=== PATIENT | male | born 1960 | race Caucasian/White ===

== ENCOUNTER 2021-01-15 13:19 | Inpatient (IN) ==
[2021-01-15] MEDS ORDERED: Naloxone 0.4 MG/ML INJ IVP PRN (16:15)
[2021-01-15] MEDS ORDERED: Mag Hydrox/Al Hydrox/Simeth 30 ML UDC PO PRN (16:15)
[2021-01-15] MEDS ORDERED: Acetaminophen 325 MG TABLET PO PRN (16:15)
[2021-01-15] MEDS ORDERED: MOM Conc 10 ML UD.LIQ PO PRN (16:15)
[2021-01-15] MEDS ORDERED: Ondansetron 4 MG/2 ML VIAL IVP PRN (16:15)
[2021-01-15] MEDS ORDERED: *HR* LORazepam 2 MG/ML VIAL IVP PRN ×2 (16:18)
[2021-01-15] MEDS ORDERED: *HR* Metoprolol 5 MG/5 ML VIAL IVP ONE (16:35)
[2021-01-15] MEDS: Nicotine 14 MG PATCH.TD24 TD SCH (17:16)
[2021-01-15 17:30] LABS: Albumin 4.5 g/dL (3.5-5.7); Alkaline Phosphatase 54 Units/L (34-104); BUN/Creatinine Ratio 11 (6-26); Blood Urea Nitrogen 6 mg/dL (8-23); Calcium 8.7 mg/dL (8.6-10.3); Carbon Dioxide 19 mEq/L (23-29); Chloride 93 mEq/L (98-107); Glucose 69 mg/dL (70-105); Osmolality,Calculated 266 (280-300); Potassium 4.1 mEq/L (3.5-5.1); Sodium 130 mEq/L (136-145); Troponin I < 0.03 ng/mL (< 0.04); eGFR For African Americans > 60 (> 60); eGFR For Non-African Americans > 60 (> 60)
[2021-01-15 17:48] LABS: Alanine Aminotransferase 57 Units/L (7-52); Albumin/Globulin Ratio 1.6 (1.1-2.2); Aspartate Amino Transferase 66 Units/L (13-39); Globulin 2.9 g/dL (2.4-3.5); Total Protein 7.4 g/dL (6.4-8.9)
[2021-01-15 17:49] LABS: Bilirubin,Total 0.9 mg/dL (0.3-1.0)
[2021-01-15] MEDS ORDERED: D5% in Water 1,000 ML IVC PRN (18:10)
[2021-01-15] MEDS ORDERED: Dextrose Gel 15 GM/37.5 ML TUBE PO PRN ×2 (18:10)
[2021-01-15] MEDS ORDERED: *HR* Dextrose 50 % in Water (Vial) 50 ML VIAL IVP PRN (18:10)
[2021-01-15] MEDS: Thiamine (B-1) 100 MG, Folic Acid 1 MG, MVI, adult with vitamin K 10 ML in 0.9 % Sodi... IVPB SCH (18:16)
[2021-01-15] MEDS ORDERED: lisinopriL 20 MG TABLET PO ONE (18:28)
[2021-01-15] MEDS: *HR* LORazepam 2 MG/ML VIAL IVP PRN (21:00)
[2021-01-16 01:07] LABS: Basophils % 0.9 %; Eosinophils # 0.1 K/mcL (0.0-0.6); Eosinophils % 1.8 %; Hematocrit 41.4 % (37.5-50.1); Hemoglobin 14.6 g/dL (12.9-16.9); Immature Granulocytes % 0.4 % (0-4); Lymphocytes % 22.2 %; Mean Corpuscular HGB Conc 35.3 g/dL (31.6-35.5); Mean Corpuscular Hemoglobin 32.4 pg (28.0-33.3); Mean Corpuscular Volume 91.8 fL (83.0-100.0); Mean Platelet Volume 8.4 fL (9.4-12.4); Monocytes # 0.4 K/mcL (0.0-1.3); Platelet Count 155 K/mcL (140-400); Red Blood Count 4.51 M/mcL (4.19-5.50); Red Cell Distribution Width 12.8 % (11.5-14.5); Segmented Neutrophils % 66.7 %; White Blood Count 4.5 K/mcL (4.3-11.1)
[2021-01-16 01:16] LABS: Prothrombin Time 11.9 Seconds (9.4-12.1)
[2021-01-16 01:19] LABS: Alanine Aminotransferase 54 Units/L (7-52); Albumin 4.2 g/dL (3.5-5.7); Albumin/Globulin Ratio 1.6 (1.1-2.2); Alkaline Phosphatase 50 Units/L (34-104); Aspartate Amino Transferase 56 Units/L (13-39); BUN/Creatinine Ratio 14 (6-26); Bilirubin,Total 0.6 mg/dL (0.3-1.0); Blood Urea Nitrogen 11 mg/dL (8-23); Carbon Dioxide 25 mEq/L (23-29); Chloride 96 mEq/L (98-107); Globulin 2.7 g/dL (2.4-3.5); Glucose 108 mg/dL (70-105); Magnesium 2.2 mg/dL (1.6-2.6); Osmolality,Calculated 270 (280-300); Phosphorous 3.3 mg/dL (2.7-4.5); Potassium 3.7 mEq/L (3.5-5.1); Sodium 130 mEq/L (136-145); Total Protein 6.9 g/dL (6.4-8.9); eGFR For African Americans > 60 (> 60); eGFR For Non-African Americans > 60 (> 60)
[2021-01-16 01:47] LABS: Ethanol < 10 mg/dL (Less than 10); Sodium 131 mEq/L (136-145)
[2021-01-16] MEDS ORDERED: lisinopriL 20 MG TABLET PO SCH (09:00)
[2021-01-16] MEDS: Nicotine 14 MG PATCH.TD24 TD SCH (16:29)
[2021-01-16] MEDS: lisinopriL 20 MG TABLET PO SCH (16:29)
[2021-01-16] MEDS: Thiamine (B-1) 100 MG, Folic Acid 1 MG, MVI, adult with vitamin K 10 ML in 0.9 % Sodi... IVPB SCH (16:55)
[2021-01-16] MEDS ORDERED: lisinopriL 20 MG TABLET PO ONE (18:28)
[2021-01-16] MEDS: Melatonin 3 MG TABLET PO PRN (21:41)
[2021-01-17] MEDS: *HR* LORazepam 2 MG/ML VIAL IVP PRN ×2 (00:05→21:57)
[2021-01-17 05:23] LABS: Hematocrit 38.7 % (37.5-50.1); Mean Corpuscular HGB Conc 33.6 g/dL (31.6-35.5); Mean Corpuscular Hemoglobin 31.3 pg (28.0-33.3); Mean Corpuscular Volume 93.3 fL (83.0-100.0); Mean Platelet Volume 8.8 fL (9.4-12.4); Platelet Count 108 K/mcL (140-400); Red Blood Count 4.15 M/mcL (4.19-5.50); Red Cell Distribution Width 12.9 % (11.5-14.5); White Blood Count 4.1 K/mcL (4.3-11.1)
[2021-01-17 05:45] LABS: Alanine Aminotransferase 50 Units/L (7-52); Albumin 3.8 g/dL (3.5-5.7); Albumin/Globulin Ratio 1.7 (1.1-2.2); Alkaline Phosphatase 47 Units/L (34-104); Aspartate Amino Transferase 53 Units/L (13-39); BUN/Creatinine Ratio 9 (6-26); Bilirubin,Total 0.7 mg/dL (0.3-1.0); Blood Urea Nitrogen 5 mg/dL (8-23); Calcium 8.7 mg/dL (8.6-10.3); Carbon Dioxide 23 mEq/L (23-29); Chloride 98 mEq/L (98-107); Globulin 2.2 g/dL (2.4-3.5); Glucose 106 mg/dL (70-105); Osmolality,Calculated 266 (280-300); Potassium 3.6 mEq/L (3.5-5.1); Sodium 129 mEq/L (136-145); eGFR For African Americans > 60 (> 60); eGFR For Non-African Americans > 60 (> 60)
[2021-01-17] MEDS: lisinopriL 20 MG TABLET PO SCH (08:54)
[2021-01-17] MEDS: Nicotine 14 MG PATCH.TD24 TD SCH (15:22)
[2021-01-17] MEDS: amLODIPine 5 MG TABLET PO SCH (15:22)
[2021-01-17] MEDS: Thiamine (B-1) 100 MG, Folic Acid 1 MG, MVI, adult with vitamin K 10 ML in 0.9 % Sodi... IVPB SCH (17:38)
[2021-01-18 03:31] LABS: Hematocrit 38.6 % (37.5-50.1); Hemoglobin 13.1 g/dL (12.9-16.9); Mean Corpuscular HGB Conc 33.9 g/dL (31.6-35.5); Mean Corpuscular Hemoglobin 32.1 pg (28.0-33.3); Mean Corpuscular Volume 94.6 fL (83.0-100.0); Mean Platelet Volume 8.9 fL (9.4-12.4); Platelet Count 105 K/mcL (140-400); Red Blood Count 4.08 M/mcL (4.19-5.50); Red Cell Distribution Width 12.7 % (11.5-14.5); White Blood Count 3.6 K/mcL (4.3-11.1)
[2021-01-18 03:51] LABS: Alanine Aminotransferase 64 Units/L (7-52); Albumin 3.9 g/dL (3.5-5.7); Albumin/Globulin Ratio 1.8 (1.1-2.2); Alkaline Phosphatase 43 Units/L (34-104); Aspartate Amino Transferase 62 Units/L (13-39); BUN/Creatinine Ratio 11 (6-26); Bilirubin,Total 0.4 mg/dL (0.3-1.0); Blood Urea Nitrogen 5 mg/dL (8-23); Calcium 8.6 mg/dL (8.6-10.3); Carbon Dioxide 23 mEq/L (23-29); Chloride 99 mEq/L (98-107); Globulin 2.2 g/dL (2.4-3.5); Glucose 104 mg/dL (70-105); Osmolality,Calculated 270 (280-300); Potassium 3.5 mEq/L (3.5-5.1); Sodium 131 mEq/L (136-145); Total Protein 6.1 g/dL (6.4-8.9); eGFR For African Americans > 60 (> 60); eGFR For Non-African Americans > 60 (> 60)
[2021-01-18 04:05] LABS: Thyroid Stimulating Hormone 2.091 mcIU/mL (0.340-5.600)
[2021-01-18] MEDS: amLODIPine 5 MG TABLET PO SCH (07:28)
[2021-01-18] MEDS: lisinopriL 20 MG TABLET PO SCH (07:28)
[2021-01-18] MEDS: Nicotine 14 MG PATCH.TD24 TD SCH (15:26)
[2021-01-18] MEDS: Melatonin 3 MG TABLET PO PRN (21:39)
[2021-01-19 02:31] LABS: Hematocrit 38.1 % (37.5-50.1); Mean Corpuscular HGB Conc 34.1 g/dL (31.6-35.5); Mean Corpuscular Hemoglobin 32.2 pg (28.0-33.3); Mean Corpuscular Volume 94.3 fL (83.0-100.0); Mean Platelet Volume 8.4 fL (9.4-12.4); Platelet Count 110 K/mcL (140-400); Red Blood Count 4.04 M/mcL (4.19-5.50); Red Cell Distribution Width 12.8 % (11.5-14.5); White Blood Count 3.8 K/mcL (4.3-11.1)
[2021-01-19 02:52] LABS: Alanine Aminotransferase 109 Units/L (7-52); Albumin 3.9 g/dL (3.5-5.7); Albumin/Globulin Ratio 1.7 (1.1-2.2); Alkaline Phosphatase 43 Units/L (34-104); Aspartate Amino Transferase 106 Units/L (13-39); BUN/Creatinine Ratio 13 (6-26); Bilirubin,Total 0.4 mg/dL (0.3-1.0); Blood Urea Nitrogen 8 mg/dL (8-23); Calcium 8.7 mg/dL (8.6-10.3); Carbon Dioxide 23 mEq/L (23-29); Chloride 99 mEq/L (98-107); Globulin 2.3 g/dL (2.4-3.5); Glucose 113 mg/dL (70-105); Osmolality,Calculated 267 (280-300); Potassium 3.9 mEq/L (3.5-5.1); Sodium 129 mEq/L (136-145); Total Protein 6.2 g/dL (6.4-8.9); eGFR For African Americans > 60 (> 60); eGFR For Non-African Americans > 60 (> 60)
[2021-01-19 06:36] VITALS: BP 149/82
[2021-01-19] MEDS: lisinopriL 20 MG TABLET PO SCH (08:03)
[2021-01-19] MEDS: amLODIPine 5 MG TABLET PO SCH (08:03)
[2021-01-19 09:05] LABS: Adenovirus Not Detected (Not Detect); Bordetella Pertussis Not Detected (Not Detect); Chlamydophila pneumoniae Not Detected (Not Detect); Coronavirus 229E Not Detected (Not Detect); Coronavirus HKU1 Not Detected (Not Detect); Coronavirus NL63 Not Detected (Not Detect); Coronavirus OC43 Not Detected (Not Detect); Human Metapneumovirus Not Detected (Not Detect); Human Rhinovirus/Enterovirus Not Detected (Not Detect); Influenza A Subtype 2009 H1 Not Detected (Not Detect); Influenza B Not Detected (Not Detect); Mycoplasma pneumoniae Not Detected (Not Detect); Parainfluenza Virus 1 Not Detected (Not Detect); Parainfluenza Virus 2 Not Detected (Not Detect); Parainfluenza Virus 3 Not Detected (Not Detect); Parainfluenza Virus 4 Not Detected (Not Detect); Respiratory Syncytial Virus Not Detected (Not Detect); SARS-CoV-2 Not Detected (Not Detect)
== END 2021-01-19 10:04 | DRG 897 ==
LOC: 3BNU → SUATTDRO 15:59
PROVIDERS: ADMIT Internal Medicine; ATTEND Registered Nurse

== ENCOUNTER 2021-01-19 10:10 | Inpatient (IN) ==
[2021-01-19] MEDS ORDERED: Acetaminophen 325 MG TABLET PO PRN (10:22)
[2021-01-19] MEDS ORDERED: Haloperidol Lactate 5 MG/ML VIAL IM PRN (10:22)
[2021-01-19] MEDS ORDERED: traZODone 50 MG TABLET PO PRN (10:22)
[2021-01-19] MEDS ORDERED: MOM Conc 10 ML UD.LIQ PO PRN (10:22)
[2021-01-19] MEDS ORDERED: *HR* LORazepam 1 MG TABLET PO PRN (10:22)
[2021-01-19] MEDS ORDERED: hydrOXYzine pamoate 25 MG CAPSULE PO PRN (10:22)
[2021-01-19] MEDS ORDERED: Mag Hydrox/Al Hydrox/Simeth 30 ML UDC PO PRN (10:22)
[2021-01-19] MEDS ORDERED: haloperidoL 5 MG TABLET PO PRN (10:22)
[2021-01-19] MEDS ORDERED: *HR* LORazepam 2 MG/ML VIAL IM PRN (10:22)
[2021-01-19] MEDS: Nicotine 14 MG PATCH.TD24 TD SCH (11:13)
[2021-01-20] MEDS: Nicotine 14 MG PATCH.TD24 TD SCH (08:34)
[2021-01-20] MEDS: Cholecalciferol (D-3) 1,000 UNIT (25MCG) TABLET PO SCH (08:35)
[2021-01-20] MEDS: Thiamine (B-1) 100 MG TABLET PO SCH (08:35)
[2021-01-20] MEDS: amLODIPine 5 MG TABLET PO SCH (08:35)
[2021-01-20] MEDS: lisinopriL 20 MG TABLET PO SCH (08:36)
[2021-01-21] MEDS: Nicotine 14 MG PATCH.TD24 TD SCH (08:38)
[2021-01-21] MEDS: Cholecalciferol (D-3) 1,000 UNIT (25MCG) TABLET PO SCH (08:39)
[2021-01-21] MEDS: Thiamine (B-1) 100 MG TABLET PO SCH (08:39)
[2021-01-21] MEDS: lisinopriL 20 MG TABLET PO SCH (08:39)
[2021-01-21] MEDS: amLODIPine 5 MG TABLET PO SCH (08:39)
[2021-01-21 08:41] VITALS: BP 142/86
[2021-01-21] MEDS ORDERED: Folic Acid 1 MG TABLET PO SCH (09:00)
== END 2021-01-21 11:05 | disposition home or self-care (01) | DRG 885 ==
LOC: 1ANU 10:10
PROVIDERS: ADMIT Psychiatry & Neurology Forensic Psychiatry; ATTEND Psychiatry & Neurology Forensic Psychiatry

== ENCOUNTER 2021-01-26 17:11 | Inpatient (IN) ==
[2021-01-26] MEDS ORDERED: Ondansetron 4 MG/2 ML VIAL IVP PRN (23:50)
[2021-01-26] MEDS ORDERED: Naloxone 0.4 MG/ML INJ IVP PRN (23:50)
[2021-01-26] MEDS ORDERED: Melatonin 3 MG TABLET PO PRN (23:50)
[2021-01-27] MEDS ORDERED: Isovue-370 500 ML BOTTLE IVP ONE (02:09)
[2021-01-27 05:59] LABS: Basophils # 0.1 K/mcL (0.0-0.2); Eosinophils # 0.1 K/mcL (0.0-0.6); Eosinophils % 1.2 %; Hematocrit 38.6 % (37.5-50.1); Hemoglobin 12.7 g/dL (12.9-16.9); Immature Granulocytes % 0.4 % (0-4); Lymphocytes # 1.6 K/mcL (0.6-4.6); Lymphocytes % 33.7 %; Mean Corpuscular HGB Conc 32.9 g/dL (31.6-35.5); Mean Corpuscular Hemoglobin 31.2 pg (28.0-33.3); Mean Corpuscular Volume 94.8 fL (83.0-100.0); Mean Platelet Volume 8.9 fL (9.4-12.4); Monocytes # 0.6 K/mcL (0.0-1.3); Monocytes % 11.6 %; Neutrophils # 2.5 K/mcL (1.6-8.9); Platelet Count 231 K/mcL (140-400); Red Blood Count 4.07 M/mcL (4.19-5.50); Red Cell Distribution Width 13.1 % (11.5-14.5); Segmented Neutrophils % 52.1 %; White Blood Count 4.8 K/mcL (4.3-11.1)
[2021-01-27 06:18] LABS: Alanine Aminotransferase 152 Units/L (7-52); Albumin 3.9 g/dL (3.5-5.7); Albumin/Globulin Ratio 1.8 (1.1-2.2); Alkaline Phosphatase 38 Units/L (34-104); Aspartate Amino Transferase 47 Units/L (13-39); BUN/Creatinine Ratio 18 (6-26); Bilirubin,Total 0.3 mg/dL (0.3-1.0); Blood Urea Nitrogen 10 mg/dL (8-23); Calcium 8.8 mg/dL (8.6-10.3); Carbon Dioxide 26 mEq/L (23-29); Chloride 102 mEq/L (98-107); Chol/HDL Ratio 2.3 (0-4.9); Cholesterol 167 mg/dL (< 200); Globulin 2.2 g/dL (2.4-3.5); Glucose 85 mg/dL (70-105); HDL Cholesterol 72 mg/dL (40-59); LDL Cholesterol,Calculated 83 mg/dL (< 100); Magnesium 2.2 mg/dL (1.6-2.6); Osmolality,Calculated 278 (280-300); Potassium 3.8 mEq/L (3.5-5.1); Sodium 135 mEq/L (136-145); Total Protein 6.1 g/dL (6.4-8.9); Triglycerides 58 mg/dL (< 150); eGFR For African Americans > 60 (> 60); eGFR For Non-African Americans > 60 (> 60)
[2021-01-27] MEDS ORDERED: Perflutren Lipid Microsphere 1.3 ML in 0.9 % Sodium Chloride 8.7 ML IVP PRN ×2 (06:50→11:41)
[2021-01-27] MEDS: lisinopriL 20 MG TABLET PO SCH (09:07)
[2021-01-27] MEDS: Cholecalciferol (D-3) 1,000 UNIT (25MCG) TABLET PO SCH (09:07)
[2021-01-27] MEDS: Naltrexone HCl 50 MG TABLET PO SCH (09:46)
[2021-01-27] MEDS ORDERED: Aspirin Enteric Coated 81 MG Tablet PO SCH (11:45)
[2021-01-27] MEDS: Acetaminophen 325 MG TABLET PO PRN ×2 (14:56→21:17)
[2021-01-27] MEDS ORDERED: *HR* LORazepam 2 MG/ML VIAL IVP PRN ×3 (17:08)
[2021-01-27] MEDS ORDERED: *HR* LORazepam 0.5 MG TABLET PO SCH (21:00)
[2021-01-28 07:28] LABS: Basophils # 0.1 K/mcL (0.0-0.2); Eosinophils # 0.1 K/mcL (0.0-0.6); Eosinophils % 1.4 %; Hematocrit 39.3 % (37.5-50.1); Hemoglobin 13.5 g/dL (12.9-16.9); Immature Granulocytes % 0.4 % (0-4); Lymphocytes # 1.6 K/mcL (0.6-4.6); Mean Corpuscular HGB Conc 34.4 g/dL (31.6-35.5); Mean Corpuscular Hemoglobin 31.4 pg (28.0-33.3); Mean Corpuscular Volume 91.4 fL (83.0-100.0); Mean Platelet Volume 8.6 fL (9.4-12.4); Monocytes # 0.4 K/mcL (0.0-1.3); Monocytes % 8.3 %; Neutrophils # 2.8 K/mcL (1.6-8.9); Platelet Count 254 K/mcL (140-400); Red Cell Distribution Width 12.8 % (11.5-14.5); Segmented Neutrophils % 55.9 %; White Blood Count 4.9 K/mcL (4.3-11.1)
[2021-01-28 07:39] LABS: INR 1.1; Prothrombin Time 12.5 Seconds (9.4-12.1)
[2021-01-28 07:52] LABS: BUN/Creatinine Ratio 16 (6-26); Blood Urea Nitrogen 8 mg/dL (8-23); Calcium 8.8 mg/dL (8.6-10.3); Carbon Dioxide 21 mEq/L (23-29); Chloride 98 mEq/L (98-107); Glucose 99 mg/dL (70-105); Osmolality,Calculated 264 (280-300); Potassium 3.2 mEq/L (3.5-5.1); Sodium 128 mEq/L (136-145); eGFR For African Americans > 60 (> 60); eGFR For Non-African Americans > 60 (> 60)
[2021-01-28 07:56] LABS: Chol/HDL Ratio 2.5 (0-4.9); Cholesterol 183 mg/dL (< 200); HDL Cholesterol 73 mg/dL (40-59); LDL Cholesterol,Calculated 93 mg/dL (< 100); Triglycerides 85 mg/dL (< 150); Troponin I < 0.03 ng/mL (< 0.04)
[2021-01-28] MEDS: Aspirin 325 MG TABLET PO SCH (08:12)
[2021-01-28] MEDS: Cyanocobalamin (B-12) 1,000 MCG TABLET PO SCH (08:12)
[2021-01-28] MEDS: Thiamine (B-1) 100 MG TABLET PO SCH (08:12)
[2021-01-28] MEDS: Naltrexone HCl 50 MG TABLET PO SCH (08:12)
[2021-01-28] MEDS: Cholecalciferol (D-3) 1,000 UNIT (25MCG) TABLET PO SCH (08:12)
[2021-01-28] MEDS: lisinopriL 20 MG TABLET PO SCH (08:13)
[2021-01-28] MEDS: Folic Acid 1 MG TABLET PO SCH (08:13)
[2021-01-28 08:31] LABS: Estimated Average Glucose 123 mg/dl; Hemoglobin A1C 5.9 %
[2021-01-28] MEDS ORDERED: Gadolinium Contrast Agent (WT Based) IV PRN (09:15)
[2021-01-29 06:06] LABS: Basophils # 0.1 K/mcL (0.0-0.2); Eosinophils % 0.8 %; Hematocrit 39.1 % (37.5-50.1); Hemoglobin 13.3 g/dL (12.9-16.9); Immature Granulocytes % 0.6 % (0-4); Lymphocytes # 1.7 K/mcL (0.6-4.6); Lymphocytes % 34.5 %; Mean Corpuscular Hemoglobin 31.4 pg (28.0-33.3); Mean Corpuscular Volume 92.2 fL (83.0-100.0); Mean Platelet Volume 8.5 fL (9.4-12.4); Monocytes # 0.5 K/mcL (0.0-1.3); Monocytes % 9.9 %; Neutrophils # 2.7 K/mcL (1.6-8.9); Platelet Count 270 K/mcL (140-400); Red Blood Count 4.24 M/mcL (4.19-5.50); Red Cell Distribution Width 12.9 % (11.5-14.5); Segmented Neutrophils % 53.2 %; White Blood Count 5.1 K/mcL (4.3-11.1)
[2021-01-29 06:28] LABS: BUN/Creatinine Ratio 12 (6-26); Blood Urea Nitrogen 9 mg/dL (8-23); Calcium 8.9 mg/dL (8.6-10.3); Carbon Dioxide 25 mEq/L (23-29); Chloride 99 mEq/L (98-107); Glucose 100 mg/dL (70-105); Magnesium 2.3 mg/dL (1.6-2.6); Osmolality,Calculated 271 (280-300); Potassium 3.8 mEq/L (3.5-5.1); Sodium 131 mEq/L (136-145); eGFR For African Americans > 60 (> 60); eGFR For Non-African Americans > 60 (> 60)
[2021-01-29 07:15] VITALS: BP 123/76
[2021-01-29] MEDS: Cholecalciferol (D-3) 1,000 UNIT (25MCG) TABLET PO SCH (09:43)
[2021-01-29] MEDS: Aspirin 325 MG TABLET PO SCH (09:43)
[2021-01-29] MEDS: lisinopriL 20 MG TABLET PO SCH (09:43)
[2021-01-29] MEDS: Thiamine (B-1) 100 MG TABLET PO SCH (09:43)
[2021-01-29] MEDS: Folic Acid 1 MG TABLET PO SCH (09:43)
[2021-01-29] MEDS: Cyanocobalamin (B-12) 1,000 MCG TABLET PO SCH (09:43)
[2021-01-29] MEDS: Naltrexone HCl 50 MG TABLET PO SCH (09:46)
== END 2021-01-29 11:15 | disposition home or self-care (01) | DRG 57 ==
LOC: 3ANU → SUATTDRO 22:03
PROVIDERS: ADMIT Internal Medicine; ATTEND Internal Medicine